=== PATIENT | female | born 1945 ===

== ENCOUNTER 2019-09-28 09:52 | Inpatient (IN) | payer MEDICARE, SELFPAY ==
[2019-09-15 14:01] VITALS: BMI 23.6
[2019-09-28] VITALS (15 sets, daily range): BP systolic 86–153; BP diastolic 44–83; PULSE 67–105; RESP 11–20; TEMP 36.3–36.9; O2SAT 93–100; BMI 23.4
--- NOTE | 2019-09-28 | DI.RAD.S_ITS ---
PROCEDURE: XR PELVIS 1-2V INDICATIONS: post operative total left hip with hardware removal TECHNIQUE: 1 view of the lower pelvis acquired. COMPARISON: None. FINDINGS: Bones: Patient is status post total left hip arthroplasty, with hardware components in expected positions. The hip joint appears congruent. The visualized bony structures appear intact. Soft tissues: Overlying postoperative changes are noted. No suspicious soft tissue densities. IMPRESSION: Postoperative appearance, status post total left hip arthroplasty. Dictated by: James Sutton M.D. on 09/28/2019 at 19:07 Approved by: James Sutton M.D. on 09/28/2019 at 19:07
--- NOTE | 2019-09-28 06:00 | DI.RAD.S_ITS ---
PROCEDURE: XR HIP W PEL IF DONE LT 2V INDICATIONS: intraoperative left hip with hardware removal TECHNIQUE: 2 view(s) of the hip acquired. COMPARISON: None. FINDINGS: Bones: Patient is intraoperative left hip arthroplasty, with hardware components in expected positions. The hip joint appears congruent. The visualized bony structures appear intact. Soft tissues: Overlying postoperative changes are noted. No suspicious soft tissue densities. IMPRESSION: Expected postsurgical change for intraoperative placement of the prosthesis. Dictated by: Radha Ramey MD, PhD on 09/29/2019 at 8:33 Approved by: Radha Ramey MD, PhD on 09/29/2019 at 8:34
[2019-09-28] MEDS: LACTATED RINGERS 1,000 ML 42 ML IV ×3 (12:57→17:06)
[2019-09-28] MEDS: MELOXICAM 7.5 MG TABLET 15 MG PO (12:59)
[2019-09-28] MEDS: PREGABALIN 75 MG CAPSULE PO (13:00)
[2019-09-28] MEDS: ACETAMINOPHEN 325 MG TABLET 975 MG PO (13:00)
--- NOTE | 2019-09-28 14:27 | PM.PREOP ---
Pre-operative Note Interval Note History & Physical reviewed/Exam performed by Physician: Yes Changes to H&P: No H&P completed within 30 days and has changed as indicated here:: Plan for left hip ROHAN and L DANNY
[2019-09-28] MEDS: SCOPOLAMINE 1 PATCH TOP (14:54)
[2019-09-28] MEDS: CLINDAMYCIN 600 MG/50 ML PIGGYBACK 50 MG IV ×2 (15:12→22:00)
[2019-09-28] MEDS: TRANEXAMIC ACID 1,000 MG VIAL 2000 MG INJ ×2 (15:30→17:57)
--- NOTE | 2019-09-28 15:57 | SUR.OPER ---
Lateral on padded OR bed. Gel axillary roll. Arms secured on padded armboard with pillow supporting top arm. Padded hip positioner braces x4 - anterior and posterior chest and pelvis. Additional gel pad used anterior pelvis. Gel pad under bottom leg from knee to foot and secured with tape over sheet.
[2019-09-28] MEDS: KETOROLAC 30 MG/ML VIAL IV (16:29)
[2019-09-28] MEDS: MORPHINE 4 MG/ML INJ INJ (16:30)
[2019-09-28] MEDS: ROPIVACAINE 0.5% PF 5 MG/ML 20ML VIAL 60 ML INJ (16:30)
[2019-09-28] MEDS: VANCOMYCIN 1,000 MG VIAL 1000 MG TOP (18:08)
--- NOTE | 2019-09-28 18:21 | P.OP_ITS ---
Operative Date/Time/Diagnoses Date of procedure: 09/28/19 Time of procedure: 18:21 Pre-op diagnosis: L hip traumatic arthritis Post-op diagnosis: same Procedure & Clinicians Procedure: Removal of hardware (IMN), left total hip arthroplasty Same procedure as scheduled: Yes Indications: trauamtic OA Surgeon: Hari Gillis Roll Up Machine Operator: Karthikeyan Viveros Anesthesia Type: Spinal and MAC +/- Operative Notes Findings: Traumatic arthritis, healed intertrochanteric fracture, intact hardware Closure Type: primary Prosthetic devices, grafts, tissues, transplants, or devices: Fink and Nephew R3 52 mm cup Fink and Nephew 52 mm liner 36 mm inside diameter +4 lateralized Fink and Nephew size 16 synergy high offset stem Fink and Nephew Oxinium 36 mm +4 head Three screws: 25, 25, 15 Estimated Blood Loss (mL): 500 Blood products transfused: none Procedure in detail: The patient was met in the preoperative holding area with signs of surgery marked by MD. All last minute questions were answered. The patient was then brought back to the operating room where spinal anesthesia was in place. She has been placed into the right lateral decubitus position and all bony prominences were well padded. The left hip was then prepped and draped in normal sterile fashion. A time-out was then performed verifying side and site of surgery as well as the name of the patient. A 10 cm curvilinear incision was made over the greater trochanter with a 10. Blade. Electrocautery dissection was carried down to the level of the ITB band and superior gluteal fascia. This was then incised using 10. Blade. The gluteus han was then split in line with its fibers. And the piriformis and short external rotators were taken down. We made a large capsular flap and this was tagged. The hip was then dislocated and then reduced. We then turned our attention to removing the inter medullary nail. The distal interlocking bolts were removed 1st using stab incisions over the previous surgical scars and followed by Sebastian dissection down to the bolts and then removed with a screwdriver. Both these were removed. Irrigated and then closed with 2 O Vicryl and 3 nylon on the skin. We then returned our attention to the proximal aspect and gained access the proximal aspect of the nail and screwed in a back slap. We then placed a T-handle into the head screw. The sliding locking bolt was then removed. The head screw was then backed out. And then the nail was then backslapped out. The hip was then dislocated again. And a femoral neck cut was then made. The femur was then retracted anteriorly using a Cobra a 2nd Cobra was placed po steriorly and gives good visualizations of the acetabular cup there's large osteophytes around the rim which were partially removed at this time. We then began reaming with a 45 mm Reamer and found the medial wall. We then began upsizing by 2s to a 51 mm Reamer and placed a 52 mm cup. Excess osteophyte was then removed at this point. A trial liner was then placed and we turned attention to femoral side a canal finer was used to span the inside of the canal. Followed by ball-tip guidewire to confirm wear inside the canal. We then began up size reaming and ended with a size 16 Reamer. We broached along the way and ended with a size 16 broach which had good rotational stability. We calcar milled. We then did trial reduction and obtain x-rays. The trial was with a high offset neck and a 0 head. The cup position was appropriately positioned on the x-ray. And we were still short with her leg length. Within dislocated hip remove the trials placed 3 screws into the acetabular she ll and placed a lateralized liner for a 52 mm shell. We then placed a size 16 high offset femoral stem. A selected a 36 mm head +4. This was then malleted onto the trunnion. The hip was then taken through range of motion and found to have adequate stability. Betadine was then used to irrigate the wounds like to sit for several minutes followed by a L of normal saline irrigation. 1 g of vancomycin powder was introduced into the wound. Local anesthetic was then injected into the pericapsular tissues and soft tissues. The posterior capsular flap was partially repaired although not long enough to fully be repaired. The split in the gluteus medius that was used to access the source of the femoral nail was then repaired using 1 Vicryl in interrupted fashion. One Vicryl was then used and IT band in interrupted fashion followed by 1. Vicryl the superior gluteal fascia in running fashion. A 1. Vicryl was used in the fat layer followed by 2 Vicryl in the subcutaneous layer followed by strata fix Dermabond and a Aquacel dressing. Complications: none Post-operative Condition: stable Disposition: PACU Plan for aftercare: Weightbearing as tolerated left lower extremity. Posterior hip precautions. Aspirin 81 mg b.i.d. for 6 weeks for DVT prophylaxis.
--- NOTE | 2019-09-28 18:57 | SUR.PHASEI ---
Patient A/O x 4. CAO's x 4. Denies pain/nausea. Tolerating po. Abductor pillow on.
[2019-09-28] MEDS: LACTATED RINGERS 1,000 ML 125 ML IV (19:52)
[2019-09-28 20:53] LABS: Add Manual Diff / Slide Review NO; Basophils Absolute Auto 0 /uL (0-100); Basophils Percent Auto 0.1 % (0-2); Eosinophils Absolute Auto 0 /uL (0-450); Hematocrit 29.5 % (36-46); Hemoglobin 9.6 g/dL (12.0-16.0); Lymphocytes Absolute Auto 1200 /uL (1100-4500); Lymphocytes Percent Auto 7.3 % (25-40); Mean Corpuscular HGB Conc 32.7 % (30-36); Mean Corpuscular Hemoglobin 29.1 PG (26-34); Mean Corpuscular Volume 88.8 fL (80-100); Monocytes Absolute Auto 500 /uL (0-900); Monocytes Percent Auto 2.8 % (3-14); Neutrophils Absolute Auto 15000 /uL (1500-7000); Neutrophils Percent Auto 89.8 % (50-75); Platelet Count 287 X10^3/uL (150-400); Red Blood Cell Count 3.32 X10^6/uL (4.0-5.2); Red Cell Distribution Width 12.8 % (11.6-14.8); White Blood Cell Count 16.7 X10^3/uL (4.5-11.0)
[2019-09-28] MEDS: MIRTAZAPINE 15 MG TABLET 30 MG PO (21:57)
[2019-09-28] MEDS: METOPROLOL IR 50 MG TABLET PO (21:58)
[2019-09-28] MEDS: ACETAMINOPHEN 325 MG TABLET 650 MG PO (21:58)
[2019-09-28] MEDS: DOCUSATE 100 MG CAPSULE PO (21:58)
[2019-09-28] MEDS: ATORVASTATIN 20 MG TABLET 40 MG PO (21:58)
[2019-09-28] MEDS: ASPIRIN EC 81 MG TABLET PO (21:58)
[2019-09-28] MEDS: GABAPENTIN 100 MG CAPSULE PO (21:59)
[2019-09-28] MEDS: NORTRIPTYLINE HCL 25 MG CAPSULE 50 MG PO (21:59)
[2019-09-28] MEDS: OXYCODONE IR 5 MG TABLET 15 MG PO (22:05)
--- NOTE | 2019-09-28 23:51 | PC.NURSE ---
Admit/Evening SHift Note=- Patient arrived to room via bed from PACU. Admit questions done, home medications reviewed, and physical assessment completed. Patient alert and oriented and able to make needs known to staff. Patient oriented to bed and bed controls, room, bathroom, lights, phone, menu, and call sarmiento/tv remote. Aquacel dressing to hip c/d/i. ice pack provided. safety measures in place. bed alarm activated. Patient agrees to call for assistance. call sarmiento and phone within reach. will continue to monitor.
[2019-09-29] MEDS: OXYCODONE IR 5 MG TABLET 15 MG PO ×4 (01:13→20:28)
[2019-09-29] MEDS: LACTATED RINGERS 1,000 ML 125 ML IV ×4 (04:08→22:46)
[2019-09-29 05:30] VITALS: BP 86/51; PULSE 91; RESP 18; TEMP 36.4; O2SAT 97
[2019-09-29] MEDS: CLINDAMYCIN 600 MG/50 ML PIGGYBACK 50 MG IV ×3 (06:11→22:35)
[2019-09-29 07:02] LABS: Hematocrit 23.2 % (36-46); Hemoglobin 8.1 g/dL (12.0-16.0)
--- NOTE | 2019-09-29 07:46 | PM.PNPO.1 ---
Subjective Subjective Date Patient Seen: 09/29/19 Time Patient Seen: 07:46 Interval history: POD #1 s/p Removal of hardware (IMN), left total hip arthroplasty with Dr. Gillis. Patients pain well controlled overnight. She has been hypotensive last night. She has not worked with physical therapy. Exam Vital Signs (past 8 hours): - 09/29/19 05:30 Temperature 97.6 F Pulse Rate 91 H Respiratory Rate 18 Blood Pressure 86/51 L Pulse Oximetry 97 Oxygen Delivery Method Room Air Oxygen Flow Rate 0 Narrative Exam Narrative: Patient lying in bed in no acute distress. She is alert and orient x3. Calves are soft compressible, nontender bilaterally. Pulses are symmetrical. She is able actively dorsiflex plantar flex. SCDs on and functioning. Objective Labs Result Diagrams: 09/29/19 06:30 Labs: Laboratory Results - last 24 hr 09/28/19 09/29/19 20:45 06:30 WBC 16.7 H RBC 3.32 L Hgb 9.6 L 8.1 L Hct 29.5 L 23.2 L MCV 88.8 MCH 29.1 MCHC 32.7 RDW 12.8 Plt Count 287 Neut % (Auto) 89.8 H Lymph % (Auto) 7.3 L [place] % (Auto) 2.8 L Eos % (Auto) 0.0 L Baso % (Auto) 0.1 Neut # (Auto) 27488 H Lymph # (Auto) 1200 [place] # (Auto) 500 Eos # (Auto) 0 Baso # (Auto) 0 Assessment & Plan Post-op Postoperative Procedures: Procedures Operation Date: 09/28/19 12:15 Actual Procedures Side Surgeon p Removal of intramedullary isa, femur Total Hip Arthroplasty Left Hari Gillis MD Patient will mobilize with physical therapy today. She will take ASA 81 mg b.i.d. for DVT prophylaxis. Encouraged her to drink fluids. She will get an IV bolus of fluids this morning. Will recheck H&H tomorrow. She can start vitamin-C, and iron for postoperative acute blood loss. The patient is mobilizing safely this afternoon she can go home, but will most likely go home tomorrow.
[2019-09-29 08:00] VITALS: BP 112/59; PULSE 99; RESP 18; TEMP 37.3; O2SAT 95
[2019-09-29] MEDS: DOCUSATE 100 MG CAPSULE PO ×2 (08:08→20:29)
[2019-09-29] MEDS: ASPIRIN EC 81 MG TABLET PO ×2 (08:08→20:29)
[2019-09-29] MEDS: ACETAMINOPHEN 325 MG TABLET 650 MG PO ×3 (08:08→20:28)
[2019-09-29] MEDS: GABAPENTIN 100 MG CAPSULE PO ×2 (08:10→14:34)
[2019-09-29] MEDS: LACTATED RINGERS 500 ML 1000 ML IV ×2 (08:11→12:04)
[2019-09-29 08:23] LABS: Hemoglobin 7.8 g/dL (12.0-16.0); Mean Corpuscular Hemoglobin 29.9 PG (26-34); Mean Corpuscular Volume 88.1 fL (80-100); Platelet Count 255 X10^3/uL (150-400); Red Blood Cell Count 2.61 X10^6/uL (4.0-5.2); Red Cell Distribution Width 12.6 % (11.6-14.8); White Blood Cell Count 11.9 X10^3/uL (4.5-11.0)
--- NOTE | 2019-09-29 09:10 | PT.IIE ---
Current Diagnoses Unilateral primary osteoarthritis, left hip (09/28/19) Surgery Performed Operation Date: 09/28/19 12:15 Actual Procedures p Removal of intramedullary isa, femur Total Hip Arthroplasty(Left) - Hari Gillis MD Surgical History (Last Updated 09/21/19 @ 11:01 by Penny Camara RN) H/O: hysterectomy (Acute) History of bladder suspension procedure (Acute) History of cardiac cath (Acute) History of carpal tunnel surgery of right wrist (Acute) History of repair of left rotator cuff (Acute) History of repair of right rotator cuff (Acute) History of tonsillectomy and adenoidectomy (Acute) Hx of arthroscopy of right knee (Acute) Hx of bilateral cataract extraction (Acute) Hx of cervical discectomy (Acute) Hx of heart artery stent (Acute 11/15/17) Hx of tubal ligation (Acute) Medical History (Last Updated 09/21/19 @ 11:02 by Penny Camara RN) Anxiety (Acute) CAD (coronary artery disease) (Acute) Depression (Acute) Former smoker (Acute) GERD (gastroesophageal reflux disease) (Acute) HLD (hyperlipidemia) (Acute) HTN (hypertension) (Acute) Myocardial infarction (Acute ~10/2017) Osteoarthritis (Acute) Pneumonia (Acute) RLS (restless legs syndrome) (Acute) Physical Therapy Inpatient Evaluation/Re-Eval M1 PT/OT-IP Prior Functional Status Start: 09/29/19 12:09 Freq: NEEDED Status: Active Protocol: Document 09/29/19 09:10 AB (Rec: 09/29/19 12:37 [id number]) Medical Review Prior Functional Status Medical History Reviewed Yes Communication able to make needs known; has slightly slurred speech Mobility and Gait pt stated that she is modified independent with all mobilities and ambulation without AD Social History Household Members significant other Living Arrangements Mobile home Number of Floors (Floors) One Floor Number of Stairs To Enter/Railing? 5 steps to enter with bilateral rails Home Environment Standard Height Toilet,Walk in Shower Employment Status Retired M2 PT-IP Current Condition Start: 09/29/19 12:09 Freq: NEEDED Status: Active Protocol: Document 09/29/19 09:10 AB (Rec: 09/29/19 12:37 [id number] Physical Therapy Current Condition Current Condition Evaluation Date 09/29/19 Treatment Diagnosis s/p L DANNY posterior approach; difficulty in walking Onset Date 09/28/18 Precautions Posterior Hip Precautions No Hip Flexion > 90 degrees,No Hip Internal Rotation,No Hip Adduction Weight Bearing Status Weight Bearing Status Weight Bear as Tolerated M3 PT-IP Subjective Start: 09/29/19 12:09 Freq: NEEDED Status: Active Protocol: Document 09/29/19 09:10 AB (Rec: 09/29/19 12:37 AB [id number]) Subjective Physical Therapy Visit Type Type Initial Evaluation Visit Start Time 09:10 Visit Stop Time 10:35 Total Visit Minutes 85 Number of STUDENT MINISTRIES DIRECTOR Visits 0 Physical Therapy Visit Comments Patient Comments agreeable to do PT Patient Goals to go home Therapy Pain Assessment Pain When Pain Assessed At Rest Pain Present Pain Present Pain Reported Location Left Hip Intensity 6 Scale Used Numeric (1 - 10) M4 PT-IP Mobility and Gait Start: 09/29/19 12:09 Freq: NEEDED Status: Active Protocol: Document 09/29/19 09:10 AB (Rec: 09/29/19 12:37 AB [id number]) PT-Bed Mobility Assessment Supine to Sit Supine to Sit Standby Assistance Sit to Supine Sit to Supine Standby Assistance Scooting Scooting to Edge of Bed Dependent PT-Transfer Assessment Sit to and From Stand Sit to and from Stand Contact Guard Assistance,1 Person Assistance Equipment Transfer Assistive Device Gait Belt,Front Wheeled Walker Orthotic/Prosthetic Devices or Brace: No Transfers Transfer Destination Chair Transfer Technique ambulated Transfer Ability Level of Assist Contact Guard Assistance,1 Person Assistance,Use of Upper Extremities Comments Mobility Comments reviewed hip precautions with pt. and pt requires cues to recall. BP in supine 98/45. pt completed supine to sit SBA . BP: 103/53. pt tolerate 2 more minutes of sitting. BP: 96/47. pt ambulated in room using FWW CGA ~ 25 ft. BP: 105/46. ambulated pt in hallway using fWW CGA. pt with momentary confusion and instructed to sit back down. BP checked: 120/58. caregiver training conducted. educated spouse on how to use safety belt and how to assist . spouse was able to assist pt with ambulation using FWW in hallway ~ 100 ft CGA. stair climbing training conducted. pt requested to go back to bed after tx session. completed sit to supine SBA. positioned pt on bed. call light and table placed within reach. Gait Assessment Gait Gait Assistance Required: Contact Guard Assist Distance (Feet) 100 Able to Maintain Weight Bearing Status Yes During Gait Assistive Devices Assistive Device Gait Belt,Front Wheeled Walker Orthotic/Prosthetic Devices or Brace: No Gait Deviations General Gait Pattern Antalgic,Decreased Stride Length,Decreased Feet Clearance Factors Limiting Gait Function Factors Limiting Gait Function Decreased Activity Tolerance, Decreased Strength,Limited Range of Motion,Pain,Poor Balance,Poor Safety Awareness Stair Climbing Assessment Evaluation Level of Assist On Stairs Minimal Assistance,1 Person Assistance Devices Stair Climbing Assistive Devices Left Railing,Right Railing Technique/Endurance Stair Climbing Direction Ascend and Descend Stair Climbing Technique Step to Step Number of Steps Climbed 3 Query Text: Stair Climbing Set # Repetitions (reps) 2 Comments Stair Climbing Comments educated spouse on how to assist pt. pt completed with spouse assisiting and cueing. PT-Balance Assessment Sitting Balance and Reactions Static Sitting Balance Ability Good Dynamic Sitting Balance Ability Good Standing Balance and Reactions Static Standing Balance Ability Fair Dynamic Standing Balance Ability Fair Device Used FWW M5 PT-IP Objective Assessments Start: 09/29/19 12:09 Freq: NEEDED Status: Active Protocol: Document 09/29/19 09:10 AB (Rec: 09/29/19 12:37 AB [id number]) Orientation Orientation/Cognition Level of Alertness Alert Orientation Name,Place,Situation Safety Awareness Decreased Safety Awareness Memory Description Short Term Impaired Gross Range of Motion Lower Extremity ROM Assessment Within Functional Limits Strength Lower Extremity Strength Assessment Left Impaired Hip 3+/5 Knee 3+/5 Coordination Assessment Gross Coordination Gross Coordination WNL Sensation Assessment Sensation Gross Sensation WNL Muscle Tone Muscle Tone WNL Yes M6 PT-IP Treatment Start: 09/29/19 12:09 Freq: NEEDED Status: Active Protocol: Document 09/29/19 09:10 AB (Rec: 09/29/19 12:37 AB [id number]) Physical Therapy Treatment Exercises Exercises Heel Slides Education Education Provided Precautions,Weight Bearing Status,Post-Op Packet,Safety M7 PT-IP Assessment and Plan Start: 09/29/19 12:09 Freq: NEEDED Status: Active Protocol: Document 09/29/19 09:10 AB (Rec: 09/29/19 12:37 [id number]) PT Summary Assessment and Plan Potential Rehabilitation Potential Good Status of Condition at Evaluation Stable Summary Impairments Pain,ROM,Strength,Balance, Coordination,Sensation,Tone, Cognition,Bed Mobility, Transfers,Gait,Activity Tolerance Assessment Summary caregiver training conducted. spouse was able to assist pt safely. pt plans to go home with spouse to assist her. Goals Bed Mobility Goal Independent Transfer Goal Independent,Front Wheeled Walker Gait Goal Independent,Front Wheel Walker Gait Distance 200 Other Goals up/down 5 steps bilateral rails SBA Days to Meet Goals 3 Frequency of Treatment Frequency Of Treatment Twice a Day Treatment Plan Physical Therapy Treatment Plan Bed Mobility Training,Transfer Training,Gait Training, Therapeutic Exercise,Balance Retraining,Post Op Education, Discharge Planning,Hot or Cold Pack,Neuromuscular Re-ed, Coordination Retraining,Manual Therapy Recommendations To Nursing Amount of Assist Needed 1 Person Assist Discharge Recommendations PT Discharge Recommendations Home with 15/04 Assist, Outpatient PT Equipment Needed for Home Before FWW Discharge
--- NOTE | 2019-09-29 09:10 | CM.DANOTE ---
Addendum entered by Irish Donohue LPN 09/29/19 15:06: Met now with pt and her partner Nile. Pt is found lying in bed, appears pale and admits to being very tired. IV fluids running. The FWW issues by PT this morning is in the room. Introduced self and role. Pt says she had been hopeful that she could go today, now is not certain if she is staying overnight or will be released later. She has only had the morning session with PT. ROBERT Herrera says pt has been hypotensive all day and she has updated both junaid Correa and later this afternoon JAD Callejas. IV fluid has been ordered. At this point it is unclear if pt will d/c later this evening or be kept overnight. UR ROBERT Montague is aware. He has also confirmed the admission status of INPT. P: home when stable for same. Pt has OUTPT PT set up in [place]. Addendum entered by Irish Donohue LPN 09/29/19 10:35: Per PT input in Team Rounds pt has seen PT Therese this morning (no note is yet available), pt is doing well toward a d/c to the home setting and will need a FWW. Order obtained for same and given to PT dept for processing. Original Note: Discharge Planning/Care Management DCP: assessment: case received, EMR reviewed, a d/c to home order noted but progress note from junaid Correa is in draft and PT has not yet worked with pt. Pt is a 74 year old female who admitted yesterday for a scheduled surgery: removal of prior hardware and L DANNY, posterior precautions. Surgeon: Dr. Gillis Pre-Op plan: as per template below: 09/15 phone discussion with RN CAB: pt is planning for a d/c to her mobile home in [place] with her significant other Nile Conrad: [phone] to assist. ? also of home health services at d/c. Payer: Medicare and [facility]. Admission status: in review: per UR ROBERT Montague. P: discuss case in Team Rounds and then follow up with pt for d/c issues and options. (will know more about options once the admission status is determined.) Advanced directive, confirm from FAMILY Start: 09/28/19 20:20 Freq: Q24H Status: Active Protocol: Document 09/28/19 20:20 AGW (Rec: 09/28/19 23:42 AGW [id number]) Advance Directive, confirm on record Time 20:00 Person contacted patient Copy received No CM Discharge Assessment Start: 09/29/19 09:08 Freq: Status: Active Protocol: Document 09/29/19 09:08 ITV (Rec: 09/29/19 09:10 ITV [id number]) Discharge Planning Assessment Advance Directives? Yes: Working on it currently Advance Directives on File No History Provided By Medical Record Prior Living Arrangements Mobile home Household Members significant other Review Status In Process Pre-Anesthesia Assessment Start: 09/15/19 14:01 Freq: Status: Complete Protocol: Document 09/15/19 14:01 CAB (Rec: 09/15/19 14:34 CAB [id number]) Pre-Anesthesia Assessment Patient Information Reviewed Via Phone Assessment Assessment Completed With Patient Diagnostic Results BMP/CMP,CBC Comment Outside labs scanned to record Primary Care Provider Bouchra Preston Seen Specialist in Last 12 Months Yes Specialist Seen Dry Wall Installations Mechanic,Orthopedist Primary Language Japanese Height 165.1 cm Weight 64.41 kg Body Mass Index (BMI) 23.6 Hearing Ability Normal Dentition Type Full- Upper & Lower Barriers to Learning None Other Aids No Hx Anesthesia Reactions No Hx Family Anesthesia Reaction No Hx Malignant Hyperthermia No Hx Blood Transfusions Yes: with various surgeries Hx Blood Transfusion Reaction No Anesthesia Review Requested No alcohol intake former Smoking Status Former smoker how long ago did patient quit smoking Quit 2009 Pain Present Pain Reported Musculoskeletal Symptoms Abnormal Gait,Back Pain, Difficulty Walking,Joint Pain History of Falling (Recent or History of No ) Patient is completely paralyzed or No completely immobile Mental Status Oriented to own ability Is patient on oxygen? No Does patient have HALE/SOB No Hx Sleep Apnea No Currently Taking a Beta Skyler Yes: Metoprolol Hx Chest Pain No Hx SOB Yes: r/t [place] 2017, smoking Hx Syncope or Dizziness Yes: Occasional dizziness Anti-Coagulant Therapy Yes: ASA 81mg/daily Has a Dry Wall Installations Mechanic Yes: Dr Guerrero-visit 08/07/19 Cardiac Testing Yes: Estee @ [facility] 07/27/19- normal EF 67% Hx Pacemaker/ICD No Pacemaker Rep Required? No Cardiac Clearance Received Yes Comment Cardiac records scanned to record Diet Type At Home Regular dysphagia Yes: Occasional w/solids, gets stuck Urinary Catheter Present No Hx Urinary Self Catheterization No Diabetes No Patient No Lactating No Hx Drug Resistant Organism No Presence of External or Internal Medical Yes: Bilateral eye lens Devices Have you traveled outside the [facility] in the last 30 days? Marital Status / Lives With significant other Prior Living Arrangements Mobile home Number of Floors (Floors) One Floor Support System Spouse Does the Patient Have Assistance After Yes Surgery Patient Discharge Plan Description Home Health Comment Pt advised 1-2 night length of stay per surgeon Feels Safe in Current Environment Yes Been Physically Hurt or Threatened By a No Person in Current Environment Do you have thoughts of harming yourself None or others? Are you currently considering suicide? No Do you have a plan to hurt yourself or No Plan others? Do You Have Any Spiritual Beliefs That No May Affect Your HC Choices? Do You Have Any Cultural Practices That No May Affect Your HC Choices? Comment José Luis Who Can We Speak to About Patient's Care Family, friends Identifying Code for Release of Patient Declines to issue Information Health Care Proxy/Next of Kin Nile (S.O.) Health Care Proxy Emergency Contact Name Nile (S.O.) Emergency Contact Advance Directives? Yes: Working on it currently Power of Plant Health Manager No PAC Instructions Do not shave/clip surgical site,Durable medical equipment ,Medications to take/avoid, Nasal antibiotic,No ETOH/ petroleum product on skin DOS, NPO,Post-op transportation,Pre -surgical wash,Sturdy shoes/ comfortable clothes,Do not bring valuables and remove jewelry
[2019-09-29 12:00] VITALS: BP 95/52; PULSE 87; RESP 18; TEMP 36.7; O2SAT 95
[2019-09-29 16:30] VITALS: BP 93/68; PULSE 87; RESP 16; TEMP 36.9; O2SAT 92
--- NOTE | 2019-09-29 16:35 | PT.IPTN ---
Current Diagnoses Unilateral primary osteoarthritis, left hip (09/28/19) Surgery Performed Operation Date: 09/28/19 12:15 Actual Procedures p Removal of intramedullary isa, femur Total Hip Arthroplasty(Left) - Hari Gillis MD Physical Therapy Treatment Note M2 PT-IP Current Condition Start: 09/29/19 12:09 Freq: NEEDED Status: Active Protocol: Document 09/29/19 09:10 AB (Rec: 09/29/19 12:37 AB [id number]) Physical Therapy Current Condition Current Condition Evaluation Date 09/29/19 Treatment Diagnosis s/p L DANNY posterior approach; difficulty in walking Onset Date 09/28/18 Precautions Posterior Hip Precautions No Hip Flexion > 90 degrees,No Hip Internal Rotation,No Hip Adduction Weight Bearing Status Weight Bearing Status Weight Bear as Tolerated M3 PT-IP Subjective Start: 09/29/19 12:09 Freq: NEEDED Status: Active Protocol: Document 09/29/19 16:13 AW (Rec: 09/29/19 16:35 AW [id number]) Subjective Physical Therapy Visit Type Type Treatment Note Visit Start Time 15:54 Visit Stop Time 16:10 Total Visit Minutes 16 Number of GOLF CADDY Visits 0 Physical Therapy Visit Comments Patient Comments Pt willing to participate with PT Therapy Pain Assessment Pain When Pain Assessed During Mobility Pain Present Pain Present Pain Reported Location Left Hip Intensity 6 Scale Used 6/10 at rest; unchanged with mobility Pain Management Techniques Distraction,Re-positioning, Timing of Activity with Medications M4 PT-IP Mobility and Gait Start: 09/29/19 12:09 Freq: NEEDED Status: Active Protocol: Document 09/29/19 16:13 AW (Rec: 09/29/19 16:35 AW [id number]) PT-Bed Mobility Assessment Supine to Sit Supine to Sit Standby Assistance Sit to Supine Sit to Supine Standby Assistance Scooting Scooting to Edge of Bed Standby Assistance PT-Transfer Assessment Sit to and From Stand Sit to and from Stand Standby Assistance,1 Person Assistance,Use of Upper Extremities Equipment Transfer Assistive Device Gait Belt,Front Wheeled Walker Orthotic/Prosthetic Devices or Brace: No Transfers Transfer Destination Bed Transfer Technique pt ambulated with FWW Transfer Ability Level of Assist Standby Assistance,1 Person Assistance,Use of Upper Extremities Comments Mobility Comments BP in supine with HOB elevated : 97/54 HR 87. Pt completed supine to sit and sit to stand SBA using FWW. She was somewhat impulsive and required cues to slow down during gait. After gait training, pt returned to bed SBA with good attention to posterior hip precautions. Pt positioned in the bed with pillow between legs, bed alarm on, call light and all needs within reach. BP after activity was 131/67 HR 107. Gait Assessment Gait Gait Assistance Required: Standby Assistance Distance (Feet) 300 Able to Maintain Weight Bearing Status Yes During Gait Assistive Devices Assistive Device Gait Belt,Front Wheeled Walker Orthotic/Prosthetic Devices or Brace: No Gait Deviations General Gait Pattern Antalgic,Decreased Stride Length,Decreased Feet Clearance Factors Limiting Gait Function Factors Limiting Gait Function Decreased Activity Tolerance, Decreased Strength,Limited Range of Motion,Pain,Poor Balance,Poor Safety Awareness Comments Gait Comments Pt ambulated in the halls SBA with FWW but required frequent cues to keep walker closer to trunk for optimal support and cues to slow down for safety. PT-Balance Assessment Sitting Balance and Reactions Static Sitting Balance Ability Good Dynamic Sitting Balance Ability Good Standing Balance and Reactions Static Standing Balance Ability Fair Dynamic Standing Balance Ability Fair Device Used FWW M5 PT-IP Objective Assessments Start: 09/29/19 12:09 Freq: NEEDED Status: Active Protocol: Document 09/29/19 09:10 AB (Rec: 09/29/19 12:37 AB [id number]) Orientation Orientation/Cognition Level of Alertness Alert Orientation Name,Place,Situation Safety Awareness Decreased Safety Awareness Memory Description Short Term Impaired Gross Range of Motion Lower Extremity ROM Assessment Within Functional Limits Strength Lower Extremity Strength Assessment Left Impaired Hip 3+/5 Knee 3+/5 Coordination Assessment Gross Coordination Gross Coordination WNL Sensation Assessment Sensation Gross Sensation WNL Muscle Tone Muscle Tone WNL Yes M6 PT-IP Treatment Start: 09/29/19 12:09 Freq: NEEDED Status: Active Protocol: Document 09/29/19 16:13 AW (Rec: 09/29/19 16:35 AW [id number]) Physical Therapy Treatment Exercises Exercises Ankle Pumps,Gluteal Sets,Quad Sets,Heel Slides Education Education Provided Precautions,Weight Bearing Status,Safety Other Treatments Other Treatment Performed Reviewed posterior hip precautions with pt who had difficulty recalling them. Called her attention to signs in her post-op folder to use as reminders at home. M7 PT-IP Assessment and Plan Start: 09/29/19 12:09 Freq: NEEDED Status: Active Protocol: Document 09/29/19 16:13 AW (Rec: 09/29/19 16:35 AW [id number]) PT Summary Assessment and Plan Potential Rehabilitation Potential Good Status of Condition at Evaluation Stable Summary Impairments Pain,ROM,Strength,Balance, Coordination,Sensation,Tone, Cognition,Bed Mobility, Transfers,Gait,Activity Tolerance Assessment Summary Pt required decreased level of assist with bed mobility and transfers this afternoon but continued to need cues for safety with FWW. Hemodynamic response to activity was improved this session and patient reported no symptoms with any change in position or during gait. She will be safe to discharge home when medically cleared. Goals Bed Mobility Goal Independent Transfer Goal Independent,Front Wheeled Walker Gait Goal Independent,Front Wheel Walker Gait Distance 200 Other Goals up/down 5 steps bilateral rails SBA Days to Meet Goals 2 Frequency of Treatment Frequency Of Treatment Twice a Day Treatment Plan Physical Therapy Treatment Plan Bed Mobility Training,Transfer Training,Gait Training, Therapeutic Exercise,Balance Retraining,Post Op Education, Discharge Planning,Hot or Cold Pack,Neuromuscular Re-ed, Coordination Retraining,Manual Therapy Recommendations To Nursing Amount of Assist Needed Standby Assistance Discharge Recommendations PT Discharge Recommendations Home with 15/04 Assist, Outpatient PT Equipment Needed for Home Before FWW already dispensed Discharge
--- NOTE | 2019-09-29 17:16 | PC.NURSE ---
Jaimee shift note: Patient awake, alert, and pleasant. States continues to feel tired and fatigued today, no dizziness at rest or with position changes. Up out of bed to BR with FWW, ambulated with steady gait. Hypotension still noted, systolic in mid to high 90's, diastolic in mid 60's. JAD Callejas at bedside, aware. Pallor noted to face. IVF infusing, encouraging PO fluids. Patient states baseline BP is 110 systolic. Will continue to monitor closely.
[2019-09-29] MEDS: FERROUS SULFATE 325 MG TABLET PO (17:33)
[2019-09-29 19:40] VITALS: BP 111/57; PULSE 85; RESP 18; TEMP 36.6; O2SAT 98
[2019-09-29] MEDS: ATORVASTATIN 20 MG TABLET 40 MG PO (20:29)
[2019-09-29] MEDS: MIRTAZAPINE 15 MG TABLET 30 MG PO (20:29)
[2019-09-29] MEDS: ASCORBIC ACID 500 MG TABLET PO (20:29)
[2019-09-30] VITALS (11 sets, daily range): BP systolic 104–136; BP diastolic 55–75; PULSE 86–104; RESP 16–18; TEMP 36.3–37; O2SAT 90–98
[2019-09-30] MEDS: OXYCODONE IR 5 MG TABLET 15 MG PO ×5 (01:53→21:13)
[2019-09-30 05:39] LABS: Hematocrit 21.3 % (36-46); Hemoglobin 7.2 g/dL (12.0-16.0)
[2019-09-30] MEDS: CLINDAMYCIN 600 MG/50 ML PIGGYBACK 50 MG IV ×3 (06:19→22:26)
[2019-09-30] MEDS: FERROUS SULFATE 325 MG TABLET PO ×2 (08:03→16:51)
[2019-09-30] MEDS: ASCORBIC ACID 500 MG TABLET PO ×2 (08:04→21:12)
[2019-09-30] MEDS: ASPIRIN EC 81 MG TABLET PO ×2 (08:04→21:12)
[2019-09-30] MEDS: DOCUSATE 100 MG CAPSULE PO ×2 (08:04→21:21)
[2019-09-30] MEDS: ACETAMINOPHEN 325 MG TABLET 650 MG PO ×3 (08:04→21:12)
--- NOTE | 2019-09-30 10:05 | PT.IPTN ---
Current Diagnoses Unilateral primary osteoarthritis, left hip (09/28/19) Surgery Performed Operation Date: 09/28/19 12:15 Actual Procedures p Removal of intramedullary isa, femur Total Hip Arthroplasty(Left) - Hari Gillis MD Physical Therapy Treatment Note M2 PT-IP Current Condition Start: 09/29/19 12:09 Freq: NEEDED Status: Active Protocol: Document 09/29/19 09:10 AB (Rec: 09/29/19 12:37 AB [id number]) Physical Therapy Current Condition Current Condition Evaluation Date 09/29/19 Treatment Diagnosis s/p L DANNY posterior approach; difficulty in walking Onset Date 09/28/18 Precautions Posterior Hip Precautions No Hip Flexion > 90 degrees,No Hip Internal Rotation,No Hip Adduction Weight Bearing Status Weight Bearing Status Weight Bear as Tolerated M3 PT-IP Subjective Start: 09/29/19 12:09 Freq: NEEDED Status: Active Protocol: Document 09/30/19 09:29 LJ (Rec: 09/30/19 10:05 LJ [id number]) Subjective Physical Therapy Visit Type Type Treatment Note Visit Start Time 09:29 Visit Stop Time 09:56 Total Visit Minutes 27 Physical Therapy Visit Comments Patient Comments Pt willing to participate with PT Patient Goals to go home Therapy Pain Assessment Pain When Pain Assessed During Mobility Pain Present Pain Present Pain Reported M4 PT-IP Mobility and Gait Start: 09/29/19 12:09 Freq: NEEDED Status: Active Protocol: Document 09/30/19 09:29 LJ (Rec: 09/30/19 10:05 LJ [id number]) PT-Bed Mobility Assessment Supine to Sit Supine to Sit Standby Assistance Sit to Supine Sit to Supine Standby Assistance Scooting Scooting to Edge of Bed Standby Assistance PT-Transfer Assessment Sit to and From Stand Sit to and from Stand Standby Assistance,1 Person Assistance,Use of Upper Extremities Equipment Transfer Assistive Device Gait Belt,Front Wheeled Walker Orthotic/Prosthetic Devices or Brace: No Transfers Transfer Destination Chair Transfer Technique pt ambulated with FWW Transfer Ability Level of Assist Standby Assistance,1 Person Assistance,Use of Upper Extremities Comments Mobility Comments Pt SBA for all bed mobility and transfers. Demonstrated safeyt in waiting for several seconds to get stable prior to beginning ambulation Gait Assessment Gait Gait Assistance Required: Standby Assistance Distance (Feet) 400 Able to Maintain Weight Bearing Status Yes During Gait Assistive Devices Assistive Device Gait Belt,Front Wheeled Walker Orthotic/Prosthetic Devices or Brace: No Gait Deviations General Gait Pattern Antalgic,Decreased Stride Length,Decreased Feet Clearance Factors Limiting Gait Function Factors Limiting Gait Function Decreased Activity Tolerance, Decreased Strength,Limited Range of Motion,Pain,Poor Balance,Poor Safety Awareness Comments Gait Comments Pt ambulated in hallwyas with FWW requiring cues to slow down and keep FWW closer to her body. Responded properly to cues to use glutes to assist in reducing flexed trunk. Slightly antalgic gait but with reduced speed and concentration pt is able to reduce limp significantly. M5 PT-IP Objective Assessments Start: 09/29/19 12:09 Freq: NEEDED Status: Active Protocol: Document 09/29/19 09:10 AB (Rec: 09/29/19 12:37 AB [id number]) Orientation Orientation/Cognition Level of Alertness Alert Orientation Name,Place,Situation Safety Awareness Decreased Safety Awareness Memory Description Short Term Impaired Gross Range of Motion Lower Extremity ROM Assessment Within Functional Limits Strength Lower Extremity Strength Assessment Left Impaired Hip 3+/5 Knee 3+/5 Coordination Assessment Gross Coordination Gross Coordination WNL Sensation Assessment Sensation Gross Sensation WNL Muscle Tone Muscle Tone WNL Yes M6 PT-IP Treatment Start: 09/29/19 12:09 Freq: NEEDED Status: Active Protocol: Document 09/30/19 09:29 (Rec: 09/30/19 10:05 [id number]) Physical Therapy Treatment Exercises Exercises Ankle Pumps,Gluteal Sets,Quad Sets,Heel Slides Education Education Provided Precautions,Safety Other Treatments Other Treatment Performed reviewed precautions and pt was able to recall them. Standing marches and lateral weight shifting prior to initiating gait. M7 PT-IP Assessment and Plan Start: 09/29/19 12:09 Freq: NEEDED Status: Active Protocol: Document 09/30/19 09:29 (Rec: 09/30/19 10:05 [id number]) PT Summary Assessment and Plan Potential Rehabilitation Potential Good Status of Condition at Evaluation Stable Summary Impairments Pain,ROM,Strength,Balance, Coordination,Sensation,Tone, Cognition,Bed Mobility, Transfers,Gait,Activity Tolerance Assessment Summary Pt performed very well this session with less assist needed. Spoouse was walking with us in hallway while we reviewed precautions and discussed removing rugs and keeping animals away from pt whild ambulating in house. Pt responds correctly to cues to slow down and normalize gait. Goals Bed Mobility Goal Independent Transfer Goal Independent,Front Wheeled Walker Gait Goal Independent,Front Wheel Walker Gait Distance 200 Other Goals up/down 5 steps bilateral rails SBA Days to Meet Goals 2 Frequency of Treatment Frequency Of Treatment Twice a Day Treatment Plan Physical Therapy Treatment Plan Bed Mobility Training,Transfer Training,Gait Training, Therapeutic Exercise,Balance Retraining,Post Op Education, Discharge Planning,Hot or Cold Pack,Neuromuscular Re-ed, Coordination Retraining,Manual Therapy Recommendations To Nursing Amount of Assist Needed Standby Assistance,1 Person Assist
[2019-09-30] MEDS: OXYCODONE IR 10 MG TABLET PO (10:49)
--- NOTE | 2019-09-30 13:00 | PM.PNPO.1 ---
Subjective Subjective Date Patient Seen: 09/30/19 Time Patient Seen: 12:00 Interval history: Pain is [id number]. Denies fever chills. No nausea vomiting. She denies shortness of breath or chest pain. Exam Vital Signs (past 8 hours): - 09/30/19 08:00 09/30/19 10:09 Temperature 98.2 F Pulse Rate 102 H Respiratory Rate 18 16 Blood Pressure 107/72 Pulse Oximetry 90 L 98 Oxygen Delivery Method Room Air Oxygen Flow Rate 0 Narrative Exam Narrative: Pleasant 74-year-old female sitting comfortably at bedside. Patient is in no acute distress. Dressing is clean, dry and intact. Left leg is warm and dry. Motor functions intact distally. Sensation intact to light touch. Objective Labs Result Diagrams: 09/30/19 05:30 Labs: Laboratory Results - last 24 hr 09/30/19 05:30 Hgb 7.2 L Hct 21.3 L Assessment & Plan Post-op Postoperative Procedures: Procedures Operation Date: 09/28/19 12:15 Actual Procedures Side Surgeon p Removal of intramedullary isa, femur Total Hip Arthroplasty Left Hari Gillis MD Postop day 2 patient progressing as expected. Postop anemia will transfuse 2 units packed red blood cells today. Recheck H&H tomorrow. Likely discharge home tomorrow if H&H stabilizes.
[2019-09-30] MEDS: GABAPENTIN 100 MG CAPSULE PO ×2 (13:22→21:14)
--- NOTE | 2019-09-30 15:24 | PT.IPTN ---
Current Diagnoses Unilateral primary osteoarthritis, left hip (09/28/19) Surgery Performed Operation Date: 09/28/19 12:15 Actual Procedures p Removal of intramedullary isa, femur Total Hip Arthroplasty(Left) - Hari Gillis MD Physical Therapy Treatment Note M2 PT-IP Current Condition Start: 09/29/19 12:09 Freq: NEEDED Status: Active Protocol: Document 09/29/19 09:10 AB (Rec: 09/29/19 12:37 AB [id number]) Physical Therapy Current Condition Current Condition Evaluation Date 09/29/19 Treatment Diagnosis s/p L DANNY posterior approach; difficulty in walking Onset Date 09/28/18 Precautions Posterior Hip Precautions No Hip Flexion > 90 degrees,No Hip Internal Rotation,No Hip Adduction Weight Bearing Status Weight Bearing Status Weight Bear as Tolerated M3 PT-IP Subjective Start: 09/29/19 12:09 Freq: NEEDED Status: Active Protocol: Document 09/30/19 15:23 LJ (Rec: 09/30/19 15:24 LJ [id number]) Subjective Physical Therapy Visit Type Type Patient Refusal Notes states she has been up several times and would like to rest M4 PT-IP Mobility and Gait Start: 09/29/19 12:09 Freq: NEEDED Status: Active Protocol: Document 09/30/19 09:29 LJ (Rec: 09/30/19 10:05 LJ [id number]) PT-Bed Mobility Assessment Supine to Sit Supine to Sit Standby Assistance Sit to Supine Sit to Supine Standby Assistance Scooting Scooting to Edge of Bed Standby Assistance PT-Transfer Assessment Sit to and From Stand Sit to and from Stand Standby Assistance,1 Person Assistance,Use of Upper Extremities Equipment Transfer Assistive Device Gait Belt,Front Wheeled Walker Orthotic/Prosthetic Devices or Brace: No Transfers Transfer Destination Chair Transfer Technique pt ambulated with FWW Transfer Ability Level of Assist Standby Assistance,1 Person Assistance,Use of Upper Extremities Comments Mobility Comments Pt SBA for all bed mobility and transfers. Demonstrated safeyt in waiting for several seconds to get stable prior to beginning ambulation Gait Assessment Gait Gait Assistance Required: Standby Assistance Distance (Feet) 400 Able to Maintain Weight Bearing Status Yes During Gait Assistive Devices Assistive Device Gait Belt,Front Wheeled Walker Orthotic/Prosthetic Devices or Brace: No Gait Deviations General Gait Pattern Antalgic,Decreased Stride Length,Decreased Feet Clearance Factors Limiting Gait Function Factors Limiting Gait Function Decreased Activity Tolerance, Decreased Strength,Limited Range of Motion,Pain,Poor Balance,Poor Safety Awareness Comments Gait Comments Pt ambulated in hallwyas with FWW requiring cues to slow down and keep FWW closer to her body. Responded properly to cues to use glutes to assist in reducing flexed trunk. Slightly antalgic gait but with reduced speed and concentration pt is able to reduce limp significantly. M5 PT-IP Objective Assessments Start: 09/29/19 12:09 Freq: NEEDED Status: Active Protocol: Document 09/29/19 09:10 AB (Rec: 09/29/19 12:37 AB [id number]) Orientation Orientation/Cognition Level of Alertness Alert Orientation Name,Place,Situation Safety Awareness Decreased Safety Awareness Memory Description Short Term Impaired Gross Range of Motion Lower Extremity ROM Assessment Within Functional Limits Strength Lower Extremity Strength Assessment Left Impaired Hip 3+/5 Knee 3+/5 Coordination Assessment Gross Coordination Gross Coordination WNL Sensation Assessment Sensation Gross Sensation WNL Muscle Tone Muscle Tone WNL Yes M6 PT-IP Treatment Start: 09/29/19 12:09 Freq: NEEDED Status: Active Protocol: Document 09/30/19 09:29 (Rec: 09/30/19 10:05 [id number]) Physical Therapy Treatment Exercises Exercises Ankle Pumps,Gluteal Sets,Quad Sets,Heel Slides Education Education Provided Precautions,Safety Other Treatments Other Treatment Performed reviewed precautions and pt was able to recall them. Standing marches and lateral weight shifting prior to initiating gait. M7 PT-IP Assessment and Plan Start: 09/29/19 12:09 Freq: NEEDED Status: Active Protocol: Document 09/30/19 09:29 (Rec: 09/30/19 10:05 [id number]) PT Summary Assessment and Plan Potential Rehabilitation Potential Good Status of Condition at Evaluation Stable Summary Impairments Pain,ROM,Strength,Balance, Coordination,Sensation,Tone, Cognition,Bed Mobility, Transfers,Gait,Activity Tolerance Assessment Summary Pt performed very well this session with less assist needed. Spoouse was walking with us in hallway while we reviewed precautions and discussed removing rugs and keeping animals away from pt whild ambulating in house. Pt responds correctly to cues to slow down and normalize gait. Goals Bed Mobility Goal Independent Transfer Goal Independent,Front Wheeled Walker Gait Goal Independent,Front Wheel Walker Gait Distance 200 Other Goals up/down 5 steps bilateral rails SBA Days to Meet Goals 2 Frequency of Treatment Frequency Of Treatment Twice a Day Treatment Plan Physical Therapy Treatment Plan Bed Mobility Training,Transfer Training,Gait Training, Therapeutic Exercise,Balance Retraining,Post Op Education, Discharge Planning,Hot or Cold Pack,Neuromuscular Re-ed, Coordination Retraining,Manual Therapy Recommendations To Nursing Amount of Assist Needed Standby Assistance,1 Person Assist
[2019-09-30] MEDS: MIRTAZAPINE 15 MG TABLET 30 MG PO (21:12)
[2019-09-30] MEDS: ATORVASTATIN 20 MG TABLET 40 MG PO (21:12)
[2019-09-30] MEDS: NORTRIPTYLINE HCL 25 MG CAPSULE 50 MG PO (21:14)
--- NOTE | 2019-09-30 22:43 | PC.NURSE ---
Jaimee shift note: S/P 2 Units PRBC transfusion, ended at 2240, No s/sx of transfusion reaction. VSS and afebrile. No c/o dizziness or SOB.
[2019-10-01 00:52] VITALS: BP 140/67; PULSE 104; RESP 16; TEMP 36.3
[2019-10-01] MEDS: OXYCODONE IR 5 MG TABLET 15 MG PO ×3 (01:03→13:29)
[2019-10-01 05:00] VITALS: BP 157/76; PULSE 103; RESP 16; TEMP 36.3; O2SAT 93
[2019-10-01 05:47] LABS: Hemoglobin 10.4 g/dL (12.0-16.0)
[2019-10-01 06:03] LABS: Hematocrit 29.6 % (36-46)
[2019-10-01] MEDS: CLINDAMYCIN 600 MG/50 ML PIGGYBACK 50 MG IV (06:51)
[2019-10-01] MEDS: ACETAMINOPHEN 325 MG TABLET 650 MG PO (08:43)
[2019-10-01] MEDS: ASCORBIC ACID 500 MG TABLET PO (08:43)
[2019-10-01] MEDS: DOCUSATE 100 MG CAPSULE PO (08:44)
[2019-10-01] MEDS: FERROUS SULFATE 325 MG TABLET PO (08:44)
[2019-10-01] MEDS: ASPIRIN EC 81 MG TABLET PO (08:44)
[2019-10-01] MEDS: METOPROLOL IR 50 MG TABLET PO (08:44)
[2019-10-01] MEDS: GABAPENTIN 100 MG CAPSULE PO (08:44)
[2019-10-01 09:00] VITALS: BP 120/90; PULSE 98; RESP 16; TEMP 36.4; O2SAT 98
--- NOTE | 2019-10-01 11:56 | PT.IPTN ---
Current Diagnoses Unilateral primary osteoarthritis, left hip (09/28/19) Surgery Performed Operation Date: 09/28/19 12:15 Actual Procedures p Removal of intramedullary isa, femur Total Hip Arthroplasty(Left) - Hari Gillis MD Physical Therapy Treatment Note M2 PT-IP Current Condition Start: 09/29/19 12:09 Freq: NEEDED Status: Active Protocol: Document 09/29/19 09:10 AB (Rec: 09/29/19 12:37 AB [id number]) Physical Therapy Current Condition Current Condition Evaluation Date 09/29/19 Treatment Diagnosis s/p L DANNY posterior approach; difficulty in walking Onset Date 09/28/18 Precautions Posterior Hip Precautions No Hip Flexion > 90 degrees,No Hip Internal Rotation,No Hip Adduction Weight Bearing Status Weight Bearing Status Weight Bear as Tolerated M3 PT-IP Subjective Start: 09/29/19 12:09 Freq: NEEDED Status: Active Protocol: Document 10/01/19 11:40 SP (Rec: 10/01/19 12:34 SP [email or web address]) Subjective Physical Therapy Visit Type Type Treatment Note Visit Start Time 11:40 Visit Stop Time 11:56 Total Visit Minutes 16 Physical Therapy Visit Comments Patient Comments Pt willing to work with PT, SO in room when arrived for caregiver training. Patient Goals To go home with SO. Therapy Pain Assessment Pain When Pain Assessed At Rest Pain Present Pain Present Pain Reported Location Left Hip Intensity 5 Scale Used 5-6/10 at rest,6/10 druign mobility Pain Management Techniques Re-positioning,Timing of Activity with Medications M4 PT-IP Mobility and Gait Start: 09/29/19 12:09 Freq: NEEDED Status: Active Protocol: Document 10/01/19 11:40 SP (Rec: 10/01/19 12:34 SP [email or web address]) PT-Transfer Assessment Sit to and From Stand Sit to and from Stand Standby Assistance,Use of Upper Extremities Equipment Transfer Assistive Device Gait Belt,Front Wheeled Walker Orthotic/Prosthetic Devices or Brace: No Transfers Transfer Destination Chair Transfer Technique pt ambulated with FWW Transfer Ability Level of Assist Standby Assistance,Use of Upper Extremities Comments Mobility Comments Pt was sitting EOB when arrived, SO in room. SO and patient completed caregiver training including transfers, gait and stair mgt. Pt was able to complete sit to stand SBA using BUE to push from bed using fWW for contact standing support and sitting reaching back wtih good slow controlled descent in to chair when returned from walk. Pt was sitting in chair with all needs and call light within reach when left, SO in room. Gait Assessment Gait Gait Assistance Required: Standby Assistance Distance (Feet) 500 Able to Maintain Weight Bearing Status Yes During Gait Assistive Devices Assistive Device Gait Belt,Front Wheeled Walker Orthotic/Prosthetic Devices or Brace: No Gait Deviations General Gait Pattern Antalgic,Decreased Stride Length,Decreased Feet Clearance Factors Limiting Gait Function Factors Limiting Gait Function Decreased Strength,Limited Range of Motion,Pain,Poor Balance Comments Gait Comments SO providing SBA during gait using FWW from L side of bed to stairs and back, DROP WIRE ALINER cued SO and patient LLE decreased stride length, slower pacing, heel toe LLE during gait to decrease noted L hip elevation and step to gait for normal patterning with improvement, SO carried over cuing during distance. Stair Climbing Assessment Evaluation Level of Assist On Stairs Standby Assistance,Contact Guard Assistance,1 Person Assistance Devices Stair Climbing Assistive Devices Left Railing,Right Railing Technique/Endurance Stair Climbing Direction Ascend and Descend Stair Climbing Technique Step to Step Number of Steps Climbed 3 Stair Climbing Set # Repetitions (reps) 2 Comments Stair Climbing Comments SO provided CGA initially ascendign and SBA descending with cue x1 for proper LE step to gait patterning and slow controlled descent with no LOB and improved demonstration 2nd trial to complete 5 steps has at home. PT-Balance Assessment Sitting Balance and Reactions Static Sitting Balance Ability Good Dynamic Sitting Balance Ability Good Standing Balance and Reactions Static Standing Balance Ability Fair Dynamic Standing Balance Ability Fair Device Used FWW M5 PT-IP Objective Assessments Start: 09/29/19 12:09 Freq: NEEDED Status: Active Protocol: Document 09/29/19 09:10 AB (Rec: 09/29/19 12:37 AB [id number]) Orientation Orientation/Cognition Level of Alertness Alert Orientation Name,Place,Situation Safety Awareness Decreased Safety Awareness Memory Description Short Term Impaired Gross Range of Motion Lower Extremity ROM Assessment Within Functional Limits Strength Lower Extremity Strength Assessment Left Impaired Hip 3+/5 Knee 3+/5 Coordination Assessment Gross Coordination Gross Coordination WNL Sensation Assessment Sensation Gross Sensation WNL Muscle Tone Muscle Tone WNL Yes M6 PT-IP Treatment Start: 09/29/19 12:09 Freq: NEEDED Status: Active Protocol: Document 10/01/19 11:40 SP (Rec: 10/01/19 12:34 SP [email or web address]) Physical Therapy Treatment Education Education Provided Precautions,Safety Equipment Issued Equipment Type and Company FWW issued at [place]. Other Treatments Other Treatment Performed Discussed post op HEP with HO provided. Pt remembered 2/3 precautions, educated no IR including pivoting on LLE during L turn with verbal understanding by patient and SO. M7 PT-IP Assessment and Plan Start: 09/29/19 12:09 Freq: NEEDED Status: Active Protocol: Document 10/01/19 11:40 SP (Rec: 10/01/19 12:34 SP [email or web address]) PT Summary Assessment and Plan Potential Rehabilitation Potential Good Status of Condition at Evaluation Stable Summary Impairments Pain,ROM,Strength,Balance, Coordination,Sensation,Tone, Cognition,Bed Mobility, Transfers,Gait,Activity Tolerance Assessment Summary Pt performed very well this session with less assist needed. See mobility comments. Completed caregiver training and step mgt second trial with occasional cuing for step patterning by SO and cued for slower pacing while using FWW to allow for LLE heel toe gait and even stride length ( improved RLE passing LLE). DROP WIRE ALINER notified nurse Arabella patient able to go home with assistance of SO and recommend outpatient PT to improved strength for functional independence. Goals Bed Mobility Goal Independent Transfer Goal Independent,Front Wheeled Walker Gait Goal Independent,Front Wheel Walker Gait Distance 200 Other Goals up/down 5 steps bilateral rails SBA Days to Meet Goals 2 Frequency of Treatment Frequency Of Treatment Twice a Day Treatment Plan Physical Therapy Treatment Plan Bed Mobility Training,Transfer Training,Gait Training, Therapeutic Exercise,Balance Retraining,Post Op Education, Discharge Planning,Hot or Cold Pack,Neuromuscular Re-ed, Coordination Retraining,Manual Therapy Recommendations To Nursing Amount of Assist Needed Standby Assistance,1 Person Assist Discharge Recommendations PT Discharge Recommendations Home with 15/04 Assist, Outpatient PT Equipment Needed for Home Before FWW already dispensed Discharge
--- NOTE | 2019-10-01 14:14 | PM.DS.1 ---
History of Present Illness History of Present Illness Date Patient Seen: 10/01/19 Time Patient Seen: 14:14 Chief complaint: [id number] Narrative: Please see HPI previously recorded in the chart. Discharge Providers Provider Date of admission: 09/28/19 09:52 Discharge Date: 10/01/19 Primary care physician: Bouchra Preston MD Consults: 09/28/19 06:00 Consult to Anesthesiology Routine Comment: Consulting Provider: Anesthesiologist Reason for consultation: Regional block for post operative pain control 09/28/19 19:36 Consult to Discharge Planning Routine Comment: Consult to Physical Therapy Evaluate & Treat Comment: Physician Instructions: post op DANNY protocol Consult to Respiratory Therapy Evaluate & Treat Comment: Physician Instructions: Evaluate and treat 09/29/19 10:18 Consult to Discharge Planning Routine Comment: Per PT recommendation: FWW at d/c. Discharge provider: Kamilah Main PA-C Summary Hospital Course Discharge Diagnosis: s/p Removal of hardware (intramedullary nail) and left total hip arthroplasty Hospital Course: Patient is a 74 year old female who had a ground level fall axxpoximately 2 years ago and sustainted an intetrochanteric fracture. She subsequently had a longitudinal split down the lenght of her femur when she began weightbearing. This required a converseion to an intramedullary nail. Since that time shes' had progresively worsening left hip pain due to severe osteoarthritis. After discussion of benefits and medical risk patient opted to proceed with removal of her intramedullary nail and conversion to a total hip arthroplasty. On 1/6/20 she was taken to the operating room where she underwent a left total hip arthroplasty which she tolerated well. On POD#1 she was noted to be hypotensive likely from post operative anemia due to blood loss and attempt was made to fluid resucitiate. Poor mobility with PT initially. POD#2 she remained symptomatically hypotensive and H&H continued to drop to 7.2/21.3. She was transfused 2 units PRBC and H&H responded appropriately. By POD#3 her pain was well controlled. She mobilized well and was cleared by PT. She was deemed medically stable for discharge. Prescriptions for iron/vitamin C provided for anemia. Oxycodone for pain. Continue ASA 81mg BID for DVT prophylaxis. Outpatient orthopedic follow up in place. Status at Discharge Cognitive/behavioral status at discharge: oriented Functional status at discharge: uses cane/walker Overall status at discharge: patient is progressing back to baseline Exam Vital Signs (past 8 hours): - 10/01/19 09:00 Temperature 97.5 F L Pulse Rate 98 H Respiratory Rate 16 Blood Pressure 120/90 Pulse Oximetry 98 Oxygen Delivery Method Room Air Oxygen Flow Rate 0 Narrative Exam Narrative: 74 year old female resting comfortably in bed. Alert and oriented in no acute distress. Aquacel dressing over left hip is CDI. Tegaderm over left lateral thigh peeling at edge, so was removed and replaced with Coversite. Patient able to fire hip, knee and ankle flexors and extensors. Sensation intact to light touch. Palpable pedal pulse. Calves soft, compressible bilaterally. Objective Labs Result Diagrams: 10/01/19 05:10 Labs: Laboratory Results - last 24 hr 09/30/19 10/01/19 13:50 05:10 Hgb 10.4 L Hct 29.6 L Blood Type O Positive Antibody Screen Negative Crossmatch See Detail Discharge Plan Discharge Plan Patient Disposition: Home Discharge orders & Medications Prescriptions: New acetaminophen 325 mg Tablet 650 mg PO TID Qty: 40 RF: 0 aspirin 81 mg Tablet,Delayed Release (Dr/Ec) 81 mg PO BID Qty: 40 RF: 0 ascorbic acid (vitamin C) [Vitamin C] 500 mg Tablet 500 mg PO BID Qty: 40 RF: 0 ferrous sulfate 325 mg (65 mg iron) Tablet 325 mg PO BIDWM Qty: 40 RF: 0 docusate sodium [DOK] 100 mg Capsule 100 mg PO BID Qty: 40 RF: 0 oxycodone 5 mg Tablet 15 mg PO Q4-6H PRN (Reason: Pain, Moderate (4-6)) Qty: 60 RF: 0 Continued atorvastatin 40 mg Tablet 40 mg PO BEDTIME RF: 0 diphenoxylate-atropine [Lomotil] 2.5-0.025 mg Tablet 1 tab PO BID PRN (Reason: GI Upset) RF: 0 aspirin 81 mg Tablet,Delayed Release (Dr/Ec) 81 mg PO DAILY RF: 0 citalopram 20 mg Tablet 20 mg PO DAILY RF: 0 hydrocodone-acetaminophen 7.5-325 mg Tablet 1 tab PO 5XD RF: 0 mirtazapine 30 mg Tablet 30 mg PO BEDTIME RF: 0 metoprolol tartrate 50 mg Tablet 50 mg PO BID RF: 0 omeprazole 20 mg Capsule,Delayed Release(Dr/Ec) 20 mg PO DAILY RF: 0 gabapentin 100 mg Capsule 100 mg PO TID RF: 0 estradiol 0.01 % (0.1 mg/gram) Cream 1 g VAGINAL 2XW RF: 0 ondansetron 4 mg Tablet,Disintegrating 4 mg PO Q6H PRN (Reason: Nausea, vomiting) RF: 0 nortriptyline 50 mg Capsule 50 mg PO BEDTIME RF: 0 Follow up/Referrals: Bouchra Preston MD [Primary Care Provider] - Hari Gillis MD [Physician] - Diet/Activity/Treatments Diet: Diet as Tolerated Activity: Weight bear as tolerated. Posterior hip precautions. Cold/Heat Therapy: Ice packs as needed. Skin/Wound/Dressing Care Report to your healthcare provider any signs of infection, such as:: chills, fever, night sweats, unusual drainage and unusual redness Dressing: Aquacel dressing is to remain in place, this will be removed at your 2 week postoperative visit. If dressing becomes saturated please call the office. Visit Report/Discharge Packet Instructions: DI for Hip Replacement, How to Prevent Falls, DI for Prescription Opioid Use Stand Alone Forms: Surgery Discharge Discharge Data Primary Care Provider: Bouchra Preston Discharges patient from system. Discharge Date/Time: 10/01/19 14:55
--- NOTE | 2019-10-01 15:10 | PC.NURSE ---
Addendum entered by Ese Springer R.N. 10/01/19 15:13: Dressing on lateral aspect of knee changed to coversite per order by JAD Triana. Original Note: Discharge Pt states pain controlled with oxy and tylenol. Up with SBA and FWW. PIV removed prior to d/c. Pt aware to contact MD with any additional questions as well as for f/u apt. D/c instructions provided to pt and SO. Left in w/c with [employer] escort.
== END 2019-10-01 14:55 | disposition home or self-care (01) | DRG 470 ==
PROVIDERS: Physician Assistant; Physician Assistant Medical; Physician Assistant Surgical; Admitting Provider Orthopaedic Surgery Adult Reconstructive Orthopaedic Surgery; PCP Family Medicine; Visit Provider Orthopaedic Surgery Adult Reconstructive Orthopaedic Surgery
PROC: 0SRB0JZ Replacement of Left Hip Joint with Synthetic Substitute, Open Approach (ICD-10-PCS; CPT 27130; principal; 2019-09-28 12:15)
DX: M16.52 Unilateral post-traumatic osteoarthritis, left hip (principal); D62 Acute posthemorrhagic anemia; I95.9 Hypotension, unspecified; I25.10 Atherosclerotic heart disease of native coronary artery without angina pectoris; F41.9 Anxiety disorder, unspecified; I10 Essential (primary) hypertension; K21.9 Gastro-esophageal reflux disease without esophagitis; G89.29 Other chronic pain; Z87.891 Personal history of nicotine dependence
CPT/HCPCS: 36415; 36430; 72170; 73502; 85014; 85018; 85025; 85027; 86850; 86900; 86901; 94762; 97110; 97116; 97161; 97530; C1776; P9016; J1100; J1885; J2270; J2274; J2405; J2704